=== PATIENT | male | born 1975 | race Caucasian/White ===

== ENCOUNTER → 2020-09-23 13:16 | Outpatient (BNVA) | payer OTHER, SELFPAY | PROVIDERS: PCP Internal Medicine; Visit Provider Physician Assistant Medical | DX: S06.890A Other specified intracranial injury without loss of consciousness, initial encounter (principal); W20.8XXA Other cause of strike by thrown, projected or falling object, initial encounter | CPT/HCPCS: 70450; 99203; 99214 ==

== ENCOUNTER → 2020-09-25 10:24 | Outpatient (BNVA) | payer OTHER, SELFPAY | PROVIDERS: PCP Internal Medicine; Visit Provider Internal Medicine | DX: S06.890A Other specified intracranial injury without loss of consciousness, initial encounter (principal); W20.8XXA Other cause of strike by thrown, projected or falling object, initial encounter; R51.9 Headache, unspecified; R42 Dizziness and giddiness | CPT/HCPCS: 99213 ==

== ENCOUNTER → 2020-09-29 09:15 | Outpatient (BNVA) | payer OTHER, SELFPAY | PROVIDERS: PCP Internal Medicine; Visit Provider Internal Medicine | DX: S06.890A Other specified intracranial injury without loss of consciousness, initial encounter (principal); W20.8XXA Other cause of strike by thrown, projected or falling object, initial encounter | CPT/HCPCS: 99213 ==

== ENCOUNTER → 2020-10-06 07:59 | Outpatient (BNVA) | payer OTHER, SELFPAY | PROVIDERS: PCP Internal Medicine; Visit Provider Internal Medicine | DX: S09.90XD Unspecified injury of head, subsequent encounter (principal); X58.XXXD Exposure to other specified factors, subsequent encounter | CPT/HCPCS: 99213 ==

== ENCOUNTER → 2021-06-18 13:00 | Outpatient (BNVA) | payer OTHER, SELFPAY | PROVIDERS: PCP Internal Medicine; Visit Provider Physician Assistant | DX: S50.02XA Contusion of left elbow, initial encounter (principal); S40.011A Contusion of right shoulder, initial encounter; S80.11XA Contusion of right lower leg, initial encounter; X50.0XXA Overexertion from strenuous movement or load, initial encounter | CPT/HCPCS: 73030; 73080; 99203 ==

== ENCOUNTER → 2021-07-16 13:32 | Outpatient (BNVA) | payer OTHER, SELFPAY | PROVIDERS: PCP Internal Medicine; Visit Provider Physician Assistant | DX: S20.212A Contusion of left front wall of thorax, initial encounter (principal); W18.39XA Other fall on same level, initial encounter | CPT/HCPCS: 71101; 99203 ==

== ENCOUNTER → 2021-07-21 10:28 | Outpatient (BNVA) | payer OTHER, SELFPAY | PROVIDERS: PCP Internal Medicine; Visit Provider Physician Assistant | DX: S20.212A Contusion of left front wall of thorax, initial encounter (principal); X58.XXXA Exposure to other specified factors, initial encounter | CPT/HCPCS: 99213 ==

== ENCOUNTER → 2021-07-28 09:25 | Outpatient (BNVA) | payer OTHER, SELFPAY | PROVIDERS: PCP Internal Medicine; Visit Provider Physician Assistant | DX: S20.212A Contusion of left front wall of thorax, initial encounter (principal); X58.XXXA Exposure to other specified factors, initial encounter | CPT/HCPCS: 99213 ==

== ENCOUNTER → 2021-08-11 10:04 | Outpatient (BNVA) | payer OTHER, SELFPAY | PROVIDERS: PCP Internal Medicine; Visit Provider Physician Assistant | DX: S20.219D Contusion of unspecified front wall of thorax, subsequent encounter (principal); X58.XXXD Exposure to other specified factors, subsequent encounter | CPT/HCPCS: 99213 ==

== ENCOUNTER 2021-10-12 13:39 | Emergency (ER) | payer OTHER, SELFPAY ==
[2021-10-12 14:20] VITALS: BP 134/97; PULSE 93; RESP 18; TEMP 37.1; O2SAT 96; BMI 34.2
[2021-10-12 14:39] LABS: MANUAL DIFF FLAG NO
[2021-10-12 14:40] LABS: Basophils Percent Auto 0.5 % (0-2); Eosinophils Absolute Auto 0.3 X10*3/uL (0.0-0.4); Eosinophils Percent Auto 5.6 % (0-4); Hematocrit 44.8 % (42.0-52.0); Hemoglobin 15.5 g/dl (14.0-18.0); Imm Gran Abs Auto 0.02 X10*3/uL (0.00-0.03); Imm Gran Pct Auto 0.5 % (0.0-0.4); Lymphocytes Absolute Auto 0.7 X10*3/uL (1.2-4.9); Lymphocytes Percent Auto 16.5 % (20-40); Mean Corpuscular HGB Conc 34.6 g/dl (31.0-36.0); Mean Corpuscular Hemoglobin 28.7 pg (27.0-33.0); Mean Corpuscular Volume 82.8 fL (80.0-98.0); Mean Platelet Volume 10.2 fL (9.4-12.4); Monocytes Absolute Auto 0.4 X10*3/uL (0.1-1.2); Monocytes Percent Auto 9.9 % (2-11); Platelet Count 156 X10*3/uL (160-400); Red Blood Count 5.41 X10*6/uL (4.60-5.80); White Blood Count 4.4 X10*3/uL (4.8-10.8)
[2021-10-12 14:41] LABS: Glucose, Whole Blood 188 mg/dL (60-115)
[2021-10-12 15:09] LABS: Anion Gap 16 (12-20); Blood Urea Nitrogen 14 mg/dL (9-16); Calcium 9.5 mg/dL (8.4-10.2); Carbon Dioxide 28 mmol/L (22-29); Chloride 103 mmol/L (96-108); Creatinine Clr Calc Pharmacy 114.5; Estimated Glomerular Filt Rate > 60; Glucose Random 197 mg/dL (60-115); Potassium 4.8 mmol/L (3.3-5.1); Sodium 142 mmol/L (135-145)
== END 2021-10-12 19:03 | disposition left against medical advice (07) ==
PROVIDERS: Emergency Provider Emergency Medicine; PCP Internal Medicine
DX: U07.1 COVID-19 (principal); R07.89 Other chest pain; Z79.899 Other long term (current) drug therapy
CPT/HCPCS: 36415; 80048; 82947; 85025; 99283

== ENCOUNTER 2022-10-14 12:20 | Emergency (ER) | payer OTHER, SELFPAY ==
--- NOTE | ~2022-10-14 | XR_ITS ---
EXAMINATION: XR ELBOW, RIGHT CLINICAL INFORMATION: Right elbow pain and swelling COMPARISON: None TECHNIQUE: AP, lateral, and oblique views of the right elbow. FINDINGS: No fracture or dislocation. Alignment is maintained. Joint spaces are maintained. No elbow joint effusion. Mild soft tissue swelling overlies the olecranon. XR/XR elbow RT min 3V IMPRESSION: Mild soft tissue swelling overlies the olecranon. Cannot exclude olecranon bursitis. No fracture or malalignment.
[2022-10-14 12:50] VITALS: BP 163/100; PULSE 91; RESP 18; TEMP 36.7; O2SAT 97; BMI 36.6
--- NOTE | 2022-10-14 12:50 | ED_ITS ---
HPI - Extremity Injury (Upper) General Chief Complaint: Skin/Abscess/Foreign Body <CHANELLE Huitron - Last Filed: 10/14/22 13:43> Stated Complaint: R Elbow Work Injury 09/22/22 <CHANELLE Huitron - Last Filed: 10/14/22 13:43> Time Seen by Provider: 10/14/22 17:06 <CHANELLE Huitron - Last Filed: 10/14/22 13:43> History of Present Illness HPI narrative: patient complains of olecranon right elbow swelling off and on over the last several weeks since he injured his elbow when he banged it on something He went to an urgent care where he was prescribed antibiotics and referred to orthopedist for follow-up but the follow-up still several weeks away Denies any fever chills denies any difficulty moving the joint <CHANELLE Lentz - Last Filed: 10/22/22 09:50> Related Data Home Medications: Previous Rx's Medication Instructions Recorded cephalexin 500 mg tablet 500 mg PO QID 7 days #28 tabs 10/14/22 doxycycline hyclate 100 mg capsule 100 mg PO BID 7 days #14 caps 10/14/22 <CHANELLE Huitron - Last Filed: 10/14/22 13:43> Allergies/Adverse Reactions: Allergies Allergy/AdvReac Type Severity Reaction Status Date / Time No Known Allergies Allergy Verified 10/12/21 14:19 <CHANELLE Huitron - Last Filed: 10/14/22 13:43> [facility] Past Medical History Source: nursing notes reviewed <CHANELLE Lentz - Last Filed: 10/22/22 09:50> Medical History: Medical History (Updated 10/15/22 @ 00:01 by Pete Salgado) Diabetes 1.5, 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 <CHANELLE Huitron - Last Filed: 10/14/22 13:43> Social History Social History: Social History Advance Directives: No Advance Directives Information Provided: Yes <CHANELLE Huitron - Last Filed: 10/14/22 13:43> Physical Exam Vital Signs: Vital Signs: Last Vital Signs Temp 98.1 F 10/14/22 12:50 Pulse 91 10/14/22 12:50 Resp 18 10/14/22 12:50 BP 163/100 H 10/14/22 12:50 Pulse Ox 97 10/14/22 12:50 O2 Del Method 10/14/22 12:50 BMI result Body Mass Index 36.6 <CHANELLE Huitron - Last Filed: 10/14/22 13:43> Vital Signs: Last Vital Signs Temp 98.1 F 10/14/22 12:50 Pulse 91 10/14/22 12:50 Resp 18 10/14/22 12:50 BP 163/100 H 10/14/22 12:50 Pulse Ox 97 10/14/22 12:50 O2 Del Method 10/14/22 12:50 BMI result Body Mass Index 36.6 <CHANELLE Lentz - Last Filed: 10/22/22 09:50> General appearance no acute distress comfortable Head is normocephalic atraumatic Neck is supple nontender Respiratory no distress Extremities full range of motion to x4 including right elbow Right elbow exam there is full range of motion, there is no joint swelling but there is mild olecranon swelling with some redness over the bursa and a small scab at the center of the redness which is slightly larger than quarter-sized There is no other surrounding erythema, there is no discharge from the wound Neurovascular intact distal, no lymphangitis Other extremities normal Neuro no focal motor sensory deficits <CHANELLE Lentz - Last Filed: 10/22/22 09:50> Course Course Course Narrative: [facility]- 12:51PM - 47YOM presenting to the ED with complaints of right elbow pain/swelling/redness. All started 09/22/22 after a work related injury. Reports he was seen at [facility] for similar had an xray and sent to ortho although pt concerned due to the swelling and pain and redness at this time. Denies any other symptoms complaints or concerns at this time Plan: will order labs including esr/crp and repeat x-ray of right elbow patient will be sent to [facility]. <CHANELLE Huitron - Last Filed: 10/14/22 13:43> [facility]- 12:51PM - 47YOM presenting to the ED with complaints of right elbow pain/swelling/redness. All started 09/22/22 after a work related injury. Reports he was seen at [facility] in [place] for similar had an xray and sent to ortho although pt concerned due to the swelling and pain and redness at this time. Denies any other symptoms complaints or concerns at this time Plan: will order labs including esr/crp and repeat x-ray of right elbow patient will be sent to [facility]. X-ray showed mild olecranon swelling which is consistent with the physical exam of the right elbow which showed some redness, a small scabbed area where he had scraped it and small induration over the olecranon, there is no discharge from the wound there is full painless range of motion in the elbow, there is no lymphangitis, redness is just limited to the olecranon Patient is restarted on antibiotics and will follow with orthopedics I did not attempt to drain it here now as there was some overlying redness and I felt antibiotics were the best choice at this time <CHANELLE Lentz - Last Filed: 10/22/22 09:50> Medical Decision Making Lab Data Result Diagrams: 10/14/22 14:01 10/14/22 14:01 <CHANELLE Huitron - Last Filed: 10/14/22 13:43> Labs: Lab Results 10/14/22 10/14/22 10/14/22 Range/Units 14:01 14:01 14:01 WBC 6.3 (4.8-10.8) X10*3/uL RBC 5.44 (4.60-5.80) X10*6/uL Hgb 15.7 (14.0-18.0) g/dl Hct 44.7 (42.0-52.0) % MCV 82.2 (80.0-98.0) fL MCH 28.9 (27.0-33.0) pg MCHC 35.1 (31.0-36.0) g/dl RDW 13.1 (11.0-16.0) % Plt Count 196 D (160-400) X10*3/uL MPV 10.4 (9.4-12.4) fL Immature Gran % (Auto) 0.5 H (0.0-0.4) % Neut % (Auto) 61.1 (45-73) % Lymph % (Auto) 24.0 (20-40) % Jessamine % (Auto) 7.5 (2-11) % Eos % (Auto) 5.8 H (0-4) % Baso % (Auto) 1.1 (0-2) % Lymph # (Auto) 1.5 (1.2-4.9) X10*3/uL Jessamine # (Auto) 0.5 (0.1-1.2) X10*3/uL Eos # (Auto) 0.4 (0.0-0.4) X10*3/uL Baso # (Auto) 0.1 (0.0-0.2) X10*3/uL Abs Immat Gran (auto) 0.03 (0.00-0.03) X10*3/uL Absolute Neuts (auto) 3.8 (2.0-8.3) x10*3/uL Absolute Nucleated RBC 0.000 (0.0-0.012) X10*3/uL Nucleated RBC % (auto) 0.0 (0.0-0.2) /100WBC ESR 2 (0-15) MM/HR Sodium 137 (135-145) mmol/L Potassium 4.2 (3.3-5.1) mmol/L Chloride 102 (96-108) mmol/L Carbon Dioxide 23 (22-29) mmol/L Anion Gap 16 (12-20) BUN 14 (9-16) mg/dL Creatinine 1.29 (0.5-1.4) mg/dL Estim Creat Clear Calc 88.2 Estimated GFR 59 Random Glucose 303 H (60-115) mg/dL Calcium 9.6 (8.4-10.2) mg/dL Magnesium 2.0 (1.6-2.6) mg/dL Total Bilirubin 0.8 (0.0-1.0) mg/dL AST 29 (5-37) U/L ALT 31 (0-40) U/L Alkaline Phosphatase 90 (39-117) U/L C-Reactive Protein 0.43 (< or = 0.50) mg/dL Total Protein 6.8 (6.5-8.0) g/dL Albumin 4.6 (3.5-5.0) g/dL <CHANELLE Huitron - Last Filed: 10/14/22 13:43> Lab Results 10/14/22 10/14/22 10/14/22 Range/Units 14:01 14:01 14:01 WBC 6.3 (4.8-10.8) X10*3/uL RBC 5.44 (4.60-5.80) X10*6/uL Hgb 15.7 (14.0-18.0) g/dl Hct 44.7 (42.0-52.0) % MCV 82.2 (80.0-98.0) fL MCH 28.9 (27.0-33.0) pg MCHC 35.1 (31.0-36.0) g/dl RDW 13.1 (11.0-16.0) % Plt Count 196 D (160-400) X10*3/uL MPV 10.4 (9.4-12.4) fL Immature Gran % (Auto) 0.5 H (0.0-0.4) % Neut % (Auto) 61.1 (45-73) % Lymph % (Auto) 24.0 (20-40) % Jessamine % (Auto) 7.5 (2-11) % Eos % (Auto) 5.8 H (0-4) % Baso % (Auto) 1.1 (0-2) % Lymph # (Auto) 1.5 (1.2-4.9) X10*3/uL Jessamine # (Auto) 0.5 (0.1-1.2) X10*3/uL Eos # (Auto) 0.4 (0.0-0.4) X10*3/uL Baso # (Auto) 0.1 (0.0-0.2) X10*3/uL Abs Immat Gran (auto) 0.03 (0.00-0.03) X10*3/uL Absolute Neuts (auto) 3.8 (2.0-8.3) x10*3/uL Absolute Nucleated RBC 0.000 (0.0-0.012) X10*3/uL Nucleated RBC % (auto) 0.0 (0.0-0.2) /100WBC ESR 2 (0-15) MM/HR Sodium 137 (135-145) mmol/L Potassium 4.2 (3.3-5.1) mmol/L Chloride 102 (96-108) mmol/L Carbon Dioxide 23 (22-29) mmol/L Anion Gap 16 (12-20) BUN 14 (9-16) mg/dL Creatinine 1.29 (0.5-1.4) mg/dL Estim Creat Clear Calc 88.2 Estimated GFR 59 Random Glucose 303 H (60-115) mg/dL Calcium 9.6 (8.4-10.2) mg/dL Magnesium 2.0 (1.6-2.6) mg/dL Total Bilirubin 0.8 (0.0-1.0) mg/dL AST 29 (5-37) U/L ALT 31 (0-40) U/L Alkaline Phosphatase 90 (39-117) U/L C-Reactive Protein 0.43 (< or = 0.50) mg/dL Total Protein 6.8 (6.5-8.0) g/dL Albumin 4.6 (3.5-5.0) g/dL <CHANELLE Lentz - Last Filed: 10/22/22 09:50> Discharge Plan Discharge Clinical Impression: Olecranon bursitis of right elbow <CHANELLE Huitron Last Filed: 10/14/22 13:43> Patient Disposition: Home, Self-Care <CHANELLE Huitron Last Filed: 10/14/22 13:43> Additional Instructions: there is some redness over the olecranon of your right elbow, so it may be infected, so we are treating with antibiotics Follow with orthopedist for further evaluation Return for worse pain and swelling, fever, spreading redness, any sign of any worse infection or any concerns If not improved return to the ER or your doctor in 2-3 days for re-evaluation, or orthopedist if available Your blood pressure was high in the emergency room so maybe get a home blood pressure cuff and keep a record of the readings and follow with your doctor to be checked for high blood pressure Always take probiotics, vitamin pill available [id number], when did you are taking antibiotics <CHANELLE Huitron Last Filed: 10/14/22 13:43> Prescriptions: New doxycycline hyclate 100 mg capsule 100 mg PO BID 7 Days Qty: 14 0RF cephalexin 500 mg tablet 500 mg PO QID 7 Days Qty: 28 0RF <CHANELLE Huitron Last Filed: 10/14/22 13:43> Referrals: Genaro De La Torre MD [Primary Care Provider] - ( right olecranon bursitis, possibly infected) <CHANELLE Huitron - Last Filed: 10/14/22 13:43> Stand Alone Forms: Work/School Release <CHANELLE Huitron - Last Filed: 10/14/22 13:43> Interventions: ED Discharge Assessment Last Done: 10/14/22 17:31 <CHANELLE Huitron - Last Filed: 10/14/22 13:43> Discharge Date/Time: 10/14/22 17:32 <CHANELLE Huitron - Last Filed: 10/14/22 13:43>
[2022-10-14 14:05] LABS: MANUAL DIFF FLAG NO
[2022-10-14 14:09] LABS: Basophils Absolute Auto 0.1 X10*3/uL (0.0-0.2); Basophils Percent Auto 1.1 % (0-2); Eosinophils Absolute Auto 0.4 X10*3/uL (0.0-0.4); Eosinophils Percent Auto 5.8 % (0-4); Hematocrit 44.7 % (42.0-52.0); Hemoglobin 15.7 g/dl (14.0-18.0); Imm Gran Abs Auto 0.03 X10*3/uL (0.00-0.03); Imm Gran Pct Auto 0.5 % (0.0-0.4); Lymphocytes Absolute Auto 1.5 X10*3/uL (1.2-4.9); Mean Corpuscular HGB Conc 35.1 g/dl (31.0-36.0); Mean Corpuscular Hemoglobin 28.9 pg (27.0-33.0); Mean Corpuscular Volume 82.2 fL (80.0-98.0); Mean Platelet Volume 10.4 fL (9.4-12.4); Monocytes Absolute Auto 0.5 X10*3/uL (0.1-1.2); Monocytes Percent Auto 7.5 % (2-11); Neutrophils Absolute Auto 3.8 x10*3/uL (2.0-8.3); Neutrophils Percent Auto 61.1 % (45-73); Platelet Count 196 X10*3/uL (160-400); Red Blood Count 5.44 X10*6/uL (4.60-5.80); Red Cell Distribution Width 13.1 % (11.0-16.0); White Blood Count 6.3 X10*3/uL (4.8-10.8)
[2022-10-14 14:27] LABS: Alanine Aminotransferase 31 U/L (0-40); Albumin Level 4.6 g/dL (3.5-5.0); Alkaline Phosphatase 90 U/L (39-117); Anion Gap 16 (12-20); Aspartate Amino Transferase 29 U/L (5-37); Bilirubin Total 0.8 mg/dL (0.0-1.0); Blood Urea Nitrogen 14 mg/dL (9-16); C Reactive Protein 0.43 mg/dL (< or = 0.50); Calcium 9.6 mg/dL (8.4-10.2); Carbon Dioxide 23 mmol/L (22-29); Chloride 102 mmol/L (96-108); Creatinine Clr Calc Pharmacy 88.2; Estimated Glomerular Filt Rate 59; Glucose Random 303 mg/dL (60-115); Potassium 4.2 mmol/L (3.3-5.1); Sodium 137 mmol/L (135-145); Total Protein 6.8 g/dL (6.5-8.0)
[2022-10-14 14:55] LABS: Erythrocyte Sedimentation Rate 2 MM/HR (0-15)
== END 2022-10-14 17:32 | disposition home or self-care (01) ==
PROVIDERS: Physician Assistant Medical; Emergency Provider Student in an Organized Health Care Education/Training Program; PCP Internal Medicine
DX: M70.31 Other bursitis of elbow, right elbow (principal); Z79.899 Other long term (current) drug therapy
CPT/HCPCS: 36415; 73080; 80053; 83735; 85025; 85652; 86140; 99282; 99283